=== PATIENT | female | born 1945 | race Caucasian/White ===

== ENCOUNTER 2017-04-23 14:32 | Emergency (ER) | payer OTHER ==
[2017-04-23 14:39] VITALS: O2SAT 96
[2017-04-23] MEDS ORDERED: TDAP ADULT 0.5 ML INJ (BOOSTRIX) IM ONE (15:08)
--- NOTE | 2017-04-23 15:09 | EDPHY ---
H & P Stated Complaint: cut L index and mid finger on hedge trimmers Source: Patient Exam Limitations: No limitations - Personal History Current Tetanus Diphtheria and Acellular Pertussis (TDAP): Unsure - Medical/Surgical History Other PMH: thyroid. hip replacement. shoulder surg - Social History Smoking Status: Never smoked HPI/ROS: CHIEF COMPLAINT: Finger laceration HISTORY OF PRESENT ILLNESS: Patient complains of lacerations left index finger that happened around 10:15 a.m. this morning. She is working with the [employer] when she accidentally cut her left index finger. This involves only the distal phalanx volar aspect. Minimal bleeding. She applied Neosporin after irrigating the wound. She then applied a compressive dressing at home. She is here she is concerned may need suture repair. No fever or chills. No difficulty flexing or extending the finger. Tetanus status is in question she does not recall. Minimal pain with this. No other associated complaints or modifying factors. TIME OF INJURY: 10:15 a.m. today TETANUS STATUS: Uncertain REVIEW OF SYSTEMS: Ten systems reviewed and are negative unless otherwise noted in the HPI EXAMINATION General Appearance: Alert, no distress Head: normocephalic, atraumatic Cardiovascular: Pulses normal throughout. Symmetric radial pulses. Brisk cap refill all 5 fingers of the left hand Neurological: A&O, sensory symmetric, strength symmetric. Normal 2 point sensation. Good strength of the interossei. Skin: Warm and dry, no rash. There is a 1.5 cm total, stellate laceration on the left index finger over the distal phalanx, volar aspect. Some laceration. No involvement of the nail. No involvement of the flexor tendons. No foreign body appreciated. Extremities: Tenderness over the left index finger laceration. Full flexion- extension finger including superficial and profundus. Normal function of the interossei. Neurovascular intact distal laceration. MDM: 3:00 p.m. PROCEDURE: Digital Block Indication:Finger laceration Consent: Verbal Location: Left index finger Anesthesia: Lidocaine 1% plain, 0.25% Marcaine plain, 5mL Description: Base of the left index finger was prepped with chlorhexidine. The above solution was infused without complication. Tolerated well. Neurovascular intact post procedure. Good anesthesia. Complications: None 3:05 p.m. Left finger tip laceration involving the distal phalanx volar aspect. This is a stellate laceration. No bleeding. No tendinous involvement by examination. I have administered a digital block. Proceed with irrigation closure. 3:40 p.m. PROCEDURE: Laceration repair Consent: Verbal Location: Left index finger Length of repair: 1.5 cm, stellate Complexity: Moderate complexity Layer involvement: Single Anesthesia: Digital block Irrigation: Extensive Debridement: None Procedure description: Following good anesthesia, the wound was copiously irrigated. Wound bed was explored and there is no foreign body noted. Wound borders were approximated as best as could be as there was some aspiration and stellate laceration. Tolerated well without complication. Suture/Staple material: 5-0 Ethilon, 4 simple interrupted sutures Wound care: Routine as discussed Suture/Staple removal: 7-10 Days 4:00 p.m. Stellate laceration left index finger. No involvement of the tendinous structures. Neurovascular intact postprocedure. Wound care discussed. Follow up with primary care physician for definitive care. Return here in 7-10 days for suture removal. SUTURE STAPLE REMOVAL: 7-10 days ED Precautions: Worsening pain. Erythema, edema, cyanosis, pallor, paresthesia or anesthesia. SUPERVISION: This patient was independently evaluated without direct examination by the attending physician. Case was discussed with attending physician. (Ab Henry) Constitutional: Initial Vital Signs Temperature (C) 36.7 C 04/23/17 14:35 Heart Rate 86 04/23/17 14:35 Respiratory Rate 16 04/23/17 14:35 Blood Pressure 145/92 H 04/23/17 14:35 O2 Sat (%) 96 04/23/17 14:35 O2 Delivery Mode Room Air Allergies/Adverse Reactions: No Known Allergies Allergy (Unverified 04/23/17 14:39) Home Medications: Medication Instructions Recorded Levothyroxine [Synthroid 100 mcg 100 mcg PO DAILY06 04/23/17 (*)] Medical Decision Making ED Course/Re-evaluation: I did not see this patient while she was in the emergency department. However her care was discussed with the PA while the patient was in the department. I agree with treatment plan and management (Milton Chirinos) - Data Points Medications Given: Discontinued Medications Diphtheria/Tetanus/Acell Pertussis (Boostrix) 0.5 ml IM .ONCE ONE Stop: 04/23/17 15:09 Last Admin: 04/23/17 15:38 Dose: 0.5 ml Departure - Departure Disposition: Home, Routine, Self-Care Clinical Impression: Finger laceration Qualifiers: Encounter type: initial encounter Finger: index finger Damage to nail status: without damage Foreign body presence: without foreign body Laterality: left Qualified Code(s): S61.211A - Laceration without foreign body of left index finger without damage to nail, initial encounter Condition: Good Instructions: Care For Your Stitches (ED), Laceration (ED) Additional Instructions: 1. Daily wound care as discussed 2. Follow up with primary care physician or here in 7-10 days for suture removal 3. Return here for any increasing pain, redness, swelling, purulence or difficulty flexing or extending the finger Referrals: Tamara Mcmahan MD [Primary Care Provider] - As per Instructions
[2017-04-23 16:25] VITALS: BP 142/82; PULSE 74; RESP 15; TEMP 97.9
== END 2017-04-23 16:25 | disposition home or self-care (01) ==
PROC: 0HQGXZZ Repair Left Hand Skin, External Approach (ICD-10-PCS; principal; 2017-04-23)
PROC: 3E0234Z Introduction of Serum, Toxoid and Vaccine into Muscle, Percutaneous Approach (ICD-10-PCS; principal; 2017-04-23)
DX: S61.211A Laceration without foreign body of left index finger without damage to nail, initial encounter (principal); Z23 Encounter for immunization; W45.8XXA Other foreign body or object entering through skin, initial encounter

== ENCOUNTER → 2018-01-20 | Outpatient (CLI) | payer OTHER | LOC: FIMAGING 09:13 | PROVIDERS: ATTEND Registered Nurse | DX: Z12.31 Encounter for screening mammogram for malignant neoplasm of breast (principal); Z13.820 Encounter for screening for osteoporosis; M85.89 Other specified disorders of bone density and structure, multiple sites; E07.9 Disorder of thyroid, unspecified; Z78.0 Asymptomatic menopausal state; Z96.641 Presence of right artificial hip joint ==